=== PATIENT | male | born 2000 | race Two or more races ===

== ENCOUNTER 2021-07-03 01:30 | Emergency (ER) | payer SELFPAY ==
[~2021-07-03] VITALS: Ht 175.3 cm; Wt 81.8 kg
[2021-07-03 03:30] VITALS: BP 122/66
== END 2021-07-03 03:47 | disposition home or self-care (01) ==
LOC: EMS 01:31
DX: S31.21XA Laceration without foreign body of penis, initial encounter (principal); F14.90 Cocaine use, unspecified, uncomplicated; F12.90 Cannabis use, unspecified, uncomplicated; X58.XXXA Exposure to other specified factors, initial encounter; Y93.89 Activity, other specified; Y92.89 Other specified places as the place of occurrence of the external cause; Y99.8 Other external cause status
CPT/HCPCS: 99281; Z7502